=== PATIENT | male | born 1965 | race Two or more races ===

== ENCOUNTER 2022-01-18 16:42 | Emergency (ER) | payer OTHER ==
[~2022-01-18] VITALS: Ht 182.9 cm; Wt 111.1 kg
[2022-01-18] MEDS ORDERED: NORFLEC (17:01)
== END 2022-01-18 22:36 | disposition home or self-care (01) ==
LOC: ER 16:42
DX: M51.26 Other intervertebral disc displacement, lumbar region (principal)